=== PATIENT | female | born 1995 | race Caucasian/White ===

== ENCOUNTER 2021-04-24 12:42 | Emergency (ER) | payer MEDICAID ==
[~2021-04-24] VITALS: Ht 157.5 cm; Wt 110.0 kg
[2021-04-24 12:53] VITALS: BP 116/89
[2021-04-24] MEDS ORDERED: IBUP-1984 PO (13:56)
== END 2021-04-24 14:21 | disposition home or self-care (01) ==
LOC: ER 12:44
DX: M25.561 Pain in right knee (principal); X58.XXXA Exposure to other specified factors, initial encounter; Y93.89 Activity, other specified; Y92.89 Other specified places as the place of occurrence of the external cause; Y99.8 Other external cause status
CPT/HCPCS: 29505; 99283

== ENCOUNTER 2021-11-03 20:34 | Emergency (ER) | payer MEDICAID ==
[~2021-11-03] VITALS: Ht 157.5 cm; Wt 95.5 kg
[2021-11-03 20:50] VITALS: BP 129/75
[2021-11-03] MEDS ORDERED: carbamide peroxide 15ml bottle LEFT EAR ONE (22:20)
== END 2021-11-03 23:35 | disposition home or self-care (01) ==
LOC: ER 20:40
DX: H61.22 Impacted cerumen, left ear (principal)
CPT/HCPCS: 69209; 99282; 99283; 99284

== ENCOUNTER 2022-06-14 11:38 | Emergency (ER) | payer MEDICAID ==
[~2022-06-14] VITALS: Ht 154.9 cm; Wt 98.2 kg
[2022-06-14 12:13] VITALS: BP 118/85
[2022-06-14] MEDS ORDERED: HYDR-3972 PO (13:54)
[2022-06-14] MEDS ORDERED: PENI500T2 PO (13:54)
== END 2022-06-14 14:03 | disposition home or self-care (01) ==
LOC: ER 11:39
DX: K08.89 Other specified disorders of teeth and supporting structures (principal); Z79.2 Long term (current) use of antibiotics; Z79.899 Other long term (current) drug therapy
CPT/HCPCS: 99283

== ENCOUNTER 2022-11-17 14:37 | Emergency (ER) | payer MEDICAID ==
[~2022-11-17] VITALS: Ht 154.9 cm; Wt 95.5 kg
[2022-11-17 14:38] VITALS: BP 136/83
[2022-11-17] MEDS ORDERED: IBUP-1986 PO (17:48)
[2022-11-17] MEDS ORDERED: CYCL-1 PO (17:48)
== END 2022-11-17 17:53 | disposition home or self-care (01) ==
LOC: ER 14:37
DX: M54.50 Low back pain, unspecified (principal); V49.88XA Car occupant (driver) (passenger) injured in other specified transport accidents, initial encounter; Y93.89 Activity, other specified; Y92.89 Other specified places as the place of occurrence of the external cause; Y99.8 Other external cause status
CPT/HCPCS: 99283

== ENCOUNTER 2023-04-07 13:17 | Emergency (ER) | payer MEDICAID ==
[~2023-04-07] VITALS: Ht 154.9 cm; Wt 93.2 kg
[~2023-04-07 13:17] MED LIST: CYCL-1 PO; IBUP-1986 PO
[2023-04-07 14:17] LABS: BASOPHILS # (AUTO) 0.1 X10'3 (0-0.2); BASOPHILS % (AUTO) 0.7 % (0-1); EOSINOPHILS # (AUTO) 0.1 X10'3 (0-0.9); EOSINOPHILS % (AUTO) 0.9 % (0-6); HEMATOCRIT 39.7 % (35.0-45.0); HEMOGLOBIN 13.2 g/dl (12.0-16.0); LYMPHOCYTES # (AUTO) 2.7 X10'3 (1.1-4.8); LYMPHOCYTES % (AUTO) 30.3 % (21-51); MEAN CORPUSCULAR HGB CONC 33.3 g/dL (33.0-36.5); MEAN CORPUSCULAR VOLUME 84.3 FL (78-98); MEAN PLATELET VOLUME 8.3 FL (7.4-10.4); MONOCYTES # (AUTO) 0.5 X10'3 (0-0.9); MONOCYTES % (AUTO) 5.4 % (2-12); NEUTROPHILS # (AUTO) 5.7 X10'3 (1.8-7.7); NEUTROPHILS % (AUTO) 62.7 % (42-75); PLATELET COUNT 249 X10'3 (140-440); RED BLOOD COUNT 4.71 X10'6 (4.20-5.60); RED CELL DISTRIBUTION WIDTH 13.2 % (11.5-14.5); WHITE BLOOD COUNT 9.1 X10'3 (4.5-11.0)
[2023-04-07 14:27] LABS: ALANINE AMINOTRANSFERASE 30 U/L (12-78); ALBUMIN 3.5 G/DL (3.4-5.0); ALBUMIN/GLOBULIN RATIO 0.9 (1.1-1.5); ALKALINE PHOSPHATASE 71 IU/L (46-116); ANION GAP 8 (8-16); ASPARTATE AMINO TRANSFERASE 19 U/L (10-37); BILIRUBIN,TOTAL 0.5 MG/DL (0.1-1.0); BLOOD UREA NITROGEN 13 MG/DL (7-18); BUN/CREATININE RATIO 10.9 (10.0-20.0); CALCIUM 9.2 MG/DL (8.5-10.1); CHLORIDE 104 MMOL/L (99-107); CREATININE 1.19 MG/DL (0.40-0.90); GLUCOSE 96 MG/DL (70-104); POTASSIUM 3.9 MMOL/L (3.5-5.1); SODIUM 138 MMOL/L (135-145); TOTAL CARBON DIOXIDE 26.4 MMOL/L (24-32); TOTAL PROTEIN 7.5 G/DL (6.4-8.2); eCRCL 54 ML/MIN; eGFR 55 ML/MIN
[2023-04-07 14:33] LABS: PRO BRAIN NATRIURETIC PEPTIDE < 30 PG/ML (0-125)
[2023-04-07 15:47] VITALS: TEMP 99.1
[2023-04-07 16:03] LABS: BILIRUBIN,URINE NEGATIVE (Neg); CLARITY,URINE CLOUDY (Clear); COLOR,URINE YELLOW (Yellow); GLUCOSE, URINE NEGATIVE (Neg); KETONES,URINE NEGATIVE (Neg); LEUKOCYTE ESTERASE ,URINE MODERATE (Neg); NITRITES, URINE NEGATIVE (Neg); OCCULT BLOOD,URINE NEGATIVE (Neg); PH,URINE 6.5 (4.8-8.0); PROTEIN,URINE NEGATIVE (Neg); UROBILINOGEN,URINE 0.2 E.U/dL (0.2-1.0)
[2023-04-07 16:09] LABS: URINE HCG NEGATIVE (NEG)
[2023-04-07] MEDS ORDERED: iohexol 300mg/ml 100ml inj. ONE (16:12)
[2023-04-07 16:22] LABS: UA COLLECTION TYPE CLN CATCH MIDSTREAM
[2023-04-07 16:23] LABS: BACTERIA,URINE 1+ /HPF (Neg); MUCUS STRANDS FEW /LPF (Neg); RBC,URINE 0-2 /HPF (0-2); SQUAMOUS EPITHELIAL CELL,UR MANY /LPF (FEW)
[2023-04-07] MEDS ORDERED: ibuprofen tablet 400 MG TABLET PO ONE (17:05)
[2023-04-07 17:07] VITALS: BP 91/72; PULSE 81; RESP 17; O2SAT 98
== END 2023-04-07 17:38 | disposition home or self-care (01) ==
LOC: ER 13:17
DX: R42 Dizziness and giddiness (principal); R51.9 Headache, unspecified; Z79.899 Other long term (current) drug therapy
CPT/HCPCS: 36415; 71045; 80053; 81001; 81025; 83880; 84484; 85025; 93005; 99285; J3490; Q9967

== ENCOUNTER 2025-06-26 09:50 | Emergency (ER) | payer MEDICAID ==
[~2025-06-26] VITALS: Ht 154.9 cm; Wt 96.5 kg
[2025-06-26 09:51] VITALS: BP 137/54; PULSE 73; RESP 16; O2SAT 98
--- NOTE | 2025-06-26 10:34 | Physician Documentation ---
History of Present Illness ~ Chief Complaint: Ear Pain Stated Complaint: EAR PAIN Time Seen by MD: 10:20 Primary Medical Doctor: [facility] Source: patient Mode of Arrival: POV Exam Limitations: no limitations HPI Right ear pain for 2 days she has been cleaning her ear out but noticed that she is having a hard time hearing and now she has ear pain on the left today no fevers or ear discharge Medication Reconciliation Allergies: Coded Allergies: No Known Allergies (Unverified , 04/07/23) Scheduled Cyclobenzaprine* (Cyclobenzaprine*), 1 TAB PO Q8H Ibuprofen (Ibuprofen), 1 TAB PO Q8H Past Medical History Past Medical History: No Pertinent History Past Surgical History: noncontributory Alcohol Use: None Drug Use: none Lives In: Home Occupation: employed Review of Systems All Other Systems at this time: Reviewed and Negative ENT: Reports: see HPI Physical Exam Vital Signs: RN Vital Signs have been reviewed: Yes, Temperature: 98.1, Source: Oral, Heart Rate: 73, Respiratory Rate: 16, BP: 137/54, Pulse Oximetry: 98, Weight: 96.500 Oxygen Flow Rate: 0 Physical Exam General: Alert, no apparent distress. HEENT: moist mucous membranes. Left external canal swelling with some discharge noted pain with evaluation right worse than left Neck: Full range of motion. Respiratory: No respiratory distress speaking in full sentences Chest: No accessory muscle use. Cardiovascular: Appears well perfused Neurologic: Oriented x4. Psychiatric: Normal mood and affect. Skin: Normal color, warm and dry. No edema, no ecchymosis. Progress Results/Orders Results/Orders Vital Signs 06/26/25 09:51 Temp 98.1 Pulse 73 Resp 16 B/P (MAP) 137/54 Pulse Ox 98 O2 Flow Rate 0 Medical Decision Making Additional information obtaine: N/A Findings Evaluation of ears with swelling and erythema as well as minimal discharge to the external canal ear drops and antibiotics prescribed to follow up with primary care for otitis externa. Ear Diff. Dx: Considerations: Include: Cerumen impaction, Foreign body, Otitis externa, Otitis media, Other Eye Diff. Dx: Considerations: Unlikely: Chalazoin, Conjuctivits-allergic, Conjuctivitis-bacterial, Conjuctivits-chlamydial, Conjuctivitis-viral, Corneal abrasion, Corneal laceration, Corneal ulceration, Foreign body-conjuctiva, Foreign body-corneal, Foreign body-intraocular, Foreign body-lid, Glaucoma, Globe rupture, Hordeolum, Iritis, Orbital cellulitis, Periobital cellulitis, Retinal artery occulsion, Retinal vein occlusion, Rust ring, Subconjunctival hem, Ultraviolet keratitis, Uveitis, Vitreous hemorrhage, Other Nose Diff. Dx: Considerations: Unlikely: Abrasion, Anterior nasal bleed, Avulsion, Contusion, Coagulopathy, Fracture-nasal bone, Fracture-septum, Hypertension, Laceration, Other, Posterior nasal bleed, Retained foreign body, Septal hematoma Tooth Diff. Dx: Considerations: Unlikely: Alveolar fracture, Aveolar osteitis, ANUG, Facial cellulitis, Periapical abscess, Periodontal abscess, Post- extraction bleeding, Pulpitis, Trigeminal neuralgia, Tooth-avulsion, Tooth- eruption, Tooth-fracture, Tooth-subluxation, Other Throat Diff Dx: Considerations: Unlikely: AIDS, Epiglottitis, Esophageal candidiasis, Hand foot mouth disease, Herpangina, Herpetic stomatitis, Herpes simplex, Infection mononucleosis, Immunodeficiency, Kike's angina, Peritonsillar abscess, Peritonsillar cellulitis, Pharyngitis-diphtheria, Pharyngitis-strepococcal, Pharyngitis-viral, Thrush, URI, Other Departure Time of Disposition: 10:31 Disposition: HOME / SELF CARE / HOMELESS Impression: Primary Impression: Otitis externa Condition: Stable Discharge Instructions: Earache, Adult Additional Instructions: Take antibiotics as prescribed and follow up with primary care Referrals: NO PRIMARY CARE PROVIDER (PCP) Prescriptions Amoxicillin Trihydrate (Amoxicillin) 500 Mg Capsule 1 CAP PO Q12H for 10 Days, #20 CAP Prov: SIERRA KEMP NP 06/26/25 Ciprofloxacin Hcl/Hc Otic Susp* (Cipro Hc Otic Susp*) 10 Ml Bottle 3 DROP EACH EAR Q12H for 7 Days, #10 ML Prov: SIERRA KEMP NP 06/26/25 Education Educated: Patient Educated regarding: diagnosis, treatment, need for follow up Signature Scribe Signature: No scribe Attestation: The note accurately reflects work and decisions made by me.Sierra BRANDT 06/26/25 10:38 SIERRA KEMP NP Jun 26, 2025 10:34
[2025-06-26] MEDS ORDERED: AMOX-100 PO (10:38)
[2025-06-26] MEDS ORDERED: CIPR10DR EACH EAR (10:38)
[2025-06-26 10:44] VITALS: TEMP 98.1
== END 2025-06-26 10:44 | disposition home or self-care (01) ==
LOC: ER 09:51
DX: H60.92 Unspecified otitis externa, left ear (principal); Z79.899 Other long term (current) drug therapy
CPT/HCPCS: 99283